=== PATIENT | female | born 1990 | race Caucasian/White ===

== ENCOUNTER → 2018-05-15 | Outpatient (CLI) | payer BC ==
--- NOTE | 2018-05-15 14:10 | RAD ---
Right foot, 2 views, 05/15/2018: HISTORY: Foot injury No fracture or dislocation is identified. IMPRESSION: No acute bony abnormality is detected. Electronically signed by: Daniel Jackson MD (05/15/2018 2:07 PM) [facility]
== END | disposition home or self-care (01) ==
LOC: PMG 11:46
PROVIDERS: ATTEND Physician Assistant
DX: M79.671 Pain in right foot (principal)
CPT/HCPCS: 73620